=== PATIENT | female | born 1985 | race Caucasian/White ===

== ENCOUNTER 2021-08-13 19:59 | Emergency (ER) | payer BC, MEDICAID | END 2021-08-13 20:43 | disposition home or self-care (01) | LOC: JP.ED 19:59 | DX: O86.20 Urinary tract infection following delivery, unspecified (principal); N39.0 Urinary tract infection, site not specified; Z86.16 Personal history of COVID-19 | CPT/HCPCS: 81001; 87086; 87088; 87186; 99283 ==

== ENCOUNTER 2021-11-20 13:44 | Emergency (ER) | payer MEDICAID | END 2021-11-20 15:33 | disposition home or self-care (01) | LOC: JP.ED 13:44 | DX: O91.22 Nonpurulent mastitis associated with the puerperium (principal); Z86.16 Personal history of COVID-19 | CPT/HCPCS: 99283 ==